=== PATIENT | female | born 2005 | race Caucasian/White ===

== ENCOUNTER 2025-08-12 11:59 | Emergency (ER) | payer OTHER, MEDICAID ==
[~2025-08-12] VITALS: Ht 157.5 cm; Wt 88.1 kg
[2025-08-12] MEDS ORDERED: OVERDOSE RESCUE KIT XX SCH (12:25)
[2025-08-12 13:15] LABS: HEPATITIS B SURFACE ANTIBODY NEGATIVE (POSITIVE)
[2025-08-12 13:28] LABS: HCG, SERUM QUALITATIVE POSITIVE (NEGATIVE)
[2025-08-12 13:40] LABS: HIV 1&2 SCREEN NEGATIVE (NEGATIVE)
[2025-08-12 13:47] LABS: HCG, SERUM QUANTITATIVE 14.7 MIU/ML (<4.2)
[2025-08-12 13:48] LABS: HEPATITIS C VIRUS ABY INDEX < 0.02 INDEX (<0.8)
[2025-08-12 14:01] LABS: BARBITURATES URINE NEGATIVE (NEGATIVE); BENZODIAZEPINES URINE NEGATIVE (NEGATIVE); CANNABINOIDS URINE NEGATIVE (NEGATIVE); COCAINE METABOLITE URINE NEGATIVE (NEGATIVE); METHADONE URINE NEGATIVE (NEGATIVE); OPIATES URINE NEGATIVE (NEGATIVE); PHENCYCLIDINE URINE NEGATIVE (NEGATIVE)
[2025-08-12 14:02] LABS: AMPHETAMINES LEVEL URINE POSITIVE (NEGATIVE)
[2025-08-12 18:00] VITALS: BP 117/68
[2025-08-12 18:15] VITALS: TEMP 97.6; O2SAT 98
== END 2025-08-12 18:10 | disposition home or self-care (01) ==
LOC: M ED 11:59
DX: F19.10 Other psychoactive substance abuse, uncomplicated (principal); Z32.01 Encounter for pregnancy test, result positive; F41.9 Anxiety disorder, unspecified; F32.A Depression, unspecified; Z88.8 Allergy status to other drugs, medicaments and biological substances